=== PATIENT | male | born 1970 | race Caucasian/White ===

== ENCOUNTER 2016-09-05 10:52 | Emergency (ER) | payer BC ==
[~2016-09-05] VITALS: Ht 180.3 cm; Wt 110.0 kg
[~2016-09-05 10:52] MED LIST: HYGROTON25 MG PO; MULTIPLE VITAMI1 TAB PO; PRILOTC PO; PRINZIDE 12.5 M1 TA1 PO; VITAMIN C PUR1000 MG PO; ZESTRIL 5MG5 MG PO; ZYRTEC 10MG10 MG PO; [UNRECOGNIZED DRUG - OTHER] PO
[2016-09-05 10:56] VITALS: BP 113/79; PULSE 60; TEMP 97.6
[2016-09-05] MEDS ORDERED: ULTRAM 50MG TAB50 MG PO (12:05)
[2016-09-05] MEDS ORDERED: IBU600 MG PO (12:05)
== END 2016-09-05 12:25 | disposition home or self-care (01) ==
LOC: COL.ER 10:52
DX: S70.12XA Contusion of left thigh, initial encounter (principal); S80.212A Abrasion, left knee, initial encounter; W00.0XXA Fall on same level due to ice and snow, initial encounter; R21 Rash and other nonspecific skin eruption
CPT/HCPCS: L1830

== ENCOUNTER → 2016-09-09 | Outpatient (CLI) | payer BC ==
[~2016-09-09] MED LIST changes: +IBU600 MG PO; +ULTRAM 50MG TAB50 MG PO
== END ==
LOC: COL.RAD 08:01
DX: M79.652 Pain in left thigh (principal)

== ENCOUNTER 2019-07-06 08:26 | Day surgery (SDC) | payer BC ==
[~2019-07-06] VITALS: Ht 180.3 cm; Wt 111.4 kg
[2019-07-06] MEDS ORDERED: PRINIVIL10 MG PO (08:44)
[2019-07-06 08:45] VITALS: BP 139/94; PULSE 69; TEMP 98.1
[2019-07-06] MEDS ORDERED: ZANTAC 300300 MG PO (08:45)
[2019-07-06 09:40] VITALS: BP 135/89; PULSE 78; TEMP 98.1
--- NOTE | 2019-07-06 09:40 | NUR ---
Pt to [facility] via cart from ENDO. Pt drowsy, but awakens easily to verbal stimuli. Pt ambulates to recliner with stand by assistance. Pt nauseated and wanting to sleep. Pt made comfortable in recliner. VSS. Lights dimmed. Call light within reach.
[2019-07-06 09:55] VITALS: BP 130/69; PULSE 71
--- NOTE | 2019-07-06 09:55 | NUR ---
Pt sleeping. Respirations even and unlabored. Call light within reach.
[2019-07-06 10:10] VITALS: BP 121/70; PULSE 66
--- NOTE | 2019-07-06 10:10 | NUR ---
Pt awakens as nurse enters room. Pt c/o continued nausea. Zofran 4mg IVSP given per PRN orders. Ice water given per request. Will continue to monitor. Call light within reach.
[2019-07-06 10:25] VITALS: BP 120/72; PULSE 84
--- NOTE | 2019-07-06 10:25 | NUR ---
Pt continues to rest. Will continue to monitor. Call light within reach.
[2019-07-06 10:40] VITALS: BP 124/85; PULSE 52
--- NOTE | 2019-07-06 10:40 | NUR ---
Pt continues to rest. Denies needs. Call light within reach.
--- NOTE | 2019-07-06 11:00 | NUR ---
Pt wanting to get dressed. IV site discontinued with all parts intact. Pt up to dress. Call light within reach.
--- NOTE | 2019-07-06 11:15 | NUR ---
Discharge instructions reviewed. Pt and parents voice understanding.
--- NOTE | 2019-07-06 11:25 | NUR ---
Pt escorted to private car via wheel chair. Pt accompanied home by his parents.
== END 2019-07-06 11:34 | disposition home or self-care (01) ==
LOC: SDCO 08:26
DX: Z12.11 Encounter for screening for malignant neoplasm of colon (principal); Z88.1 Allergy status to other antibiotic agents; I10 Essential (primary) hypertension
CPT/HCPCS: J2250; J3010; J7030